=== PATIENT | female | born 1950 | race Caucasian/White ===

== ENCOUNTER 2018-11-05 13:01 | Day surgery (SDC) | payer OTHER ==
[2018-11-05] MEDS ORDERED: LIDOCAINE 4% SOLUTION 50 ML BTL (14:05)
[2018-11-05] MEDS ORDERED: MIDAZOLAM 1 MG/ML 2 ML INJ ×2 (14:41)
[2018-11-05] MEDS ORDERED: FENTAnyl 50 MCG/ML VIAL (14:41)
== END 2018-11-05 16:06 | disposition home or self-care (01) ==
LOC: GIL 13:01
DX: R19.4 Change in bowel habit (principal); K57.30 Diverticulosis of large intestine without perforation or abscess without bleeding; K29.00 Acute gastritis without bleeding
CPT/HCPCS: 43239; 87177; 88305; 88312